=== PATIENT | male | born 1970 | race Caucasian/White ===

== ENCOUNTER 2018-02-25 21:05 | Emergency (ER) | payer OTHER, SELFPAY ==
[2018-02-25 21:10] VITALS: BP 138/90; PULSE 78; RESP 18; O2SAT 99
--- NOTE | 2018-02-25 21:16 | ED.EXTPRO ---
HPI - Extremity Problem General Chief complaint: Extremity Problem,Nontraumatic Stated complaint: right arm pain,thinks he has a blood clot Time Seen by Provider: 02/25/18 21:16 Source: patient Mode of arrival: ambulatory Limitations: no limitations History of Present Illness HPI Narrative: Patient is a 47-year-old male with a history of CLL. Received chemotherapy last and Monday. Had an IV in his left upper extremity on an IV in his right upper extremity on Monday. 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 They were at different times but has had multiple DVTs. Has also had a PE resulting from this. He states that he has had a repeat ultrasound in his right upper extremity after his diagnosis of a DVT which shows a clearing of that clot. Does have pain in the upper portion of his right arm. He is concerned he has another DVT. He is not currently taking any anticoagulants. He is only taking an aspirin. 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 Related Data Previous Rx's Medication Instructions Recorded rivaroxaban [Xarelto] 15 mg PO BID 21 Days #0 tab 01/11/17 rivaroxaban [Xarelto] 15 mg PO BID 21 Days #42 tab 02/25/18 Allergies Allergy/AdvReac Type Severity Reaction Status Date / Time Vyojiaq-Tbn-Lji Reductase Allergy Unknown DIZZY Unverified 05/24/17 11:53 Inhibitor [[id number]-JBY REDUCTASE INHIBITOR] STATINS Allergy Unknown Uncoded 05/24/17 11:53 Review of Systems Constitutional Denies fever(s) Cardiovascular Denies chest pain and Denies dyspnea Respiratory Denies dyspnea Gastrointestinal Gastrointestinal: Denies abdominal pain Musculoskeletal Comments: Right elbow right upper arm discomfort Integumentary/Breasts Denies rash Hematologic/Lymphatic Comments: Not currently on anticoagulation PFSH Medical History CLL (chronic lymphocytic leukemia) (Acute) Deep venous thrombosis of upper extremity (Acute) Pulmonary embolism (Acute) Surgical History No pertinent past surgical history (Acute) Social History marital status: lives independently: Yes Exam Initial Vital Signs Initial Vital Signs: Vital Signs Pulse Rate 78 02/25/18 21:10 Respiratory Rate 18 02/25/18 21:10 Blood Pressure 138/90 02/25/18 21:10 Pulse Oximetry 99 02/25/18 21:10 Const General: cooperative, healthy appearing, comfortable, well developed, well groomed and No acute distress Orientation: alert, awake and oriented x3 HENMT Head: normal to inspection and normocephalic Resp Effort & Inspection: normal respiratory effort Auscultation: clear to auscultation bilaterally Cardio Rate: regular rate Rhythm: regular rhythm Pulses: radial pulses present Skin Lesions: no lesions Rashes: no rashes Neuro General: alert, awake and oriented x3 Cognition: normal cognition Speech: speech normal Extrem General: normal to inspection, full ROM and capillary refill normal Other: Tenderness to palpation along the lateral aspect of the right elbow and also up the lateral aspect of her right upper extremity Psych Appearance: grossly normal and well kempt Course Orders Ordered: ED Orders 02/25/18 21:23 US periph venous up extrem rt Stat Discontinued Medications Rivaroxaban (Xarelto) 15 mg PO NOW ONE Stop: 02/25/18 22:19 Last Admin: 02/25/18 22:24 Dose: 15 mg Vital Signs - 8 hr 02/25/18 21:10 Pulse Rate 78 Respiratory Rate 18 Blood Pressure 138/90 Pulse Oximetry 99 MDM - Extremity (Nontraumatic) Imaging Data Venous US: Radiologist's impression: DVT right brachial MDM Narrative Medical decision making narrative: No respiratory distress or chest pain which is concerning for pulmonary embolism. He does have a right brachial DVT. He states that since his last diagnosis of a DVT in his right upper extremity he did have an ultrasound which showed a clearing of that clot. We have to assume that the clot that we see today is new. He was given a dose of Xarelto here in the ER. Was sent home with a prescription for this. He was instructed to contact his oncologist tomorrow for a follow-up. He knows the risks and benefits of this medication because he has been on in the past. He knows return precautions with regard to the pulmonary embolism. Patient expressed agreement with this plan. Discharge Plan Departure Patient Disposition: Home Clinical Impression: Deep venous thrombosis of upper extremity Instructions: DI for Deep Vein Thrombosis Activity Restrictions/Additional Instructions: You were given your 1st dose of Xarelto here in the emergency department. I do recommend that tomorrow you contact your oncologist to discuss further treatment. The prescription you were given is in case the decision is made to continue with the anticoagulation. Return to the emergency department for any new or worsening symptoms Prescriptions: New rivaroxaban [Xarelto] 15 mg tablet 15 mg PO BID 21 Days Qty: 42 RF: 0 No Action rivaroxaban [Xarelto] 15 MG tablet 15 mg PO BID 21 Days Qty: 0 RF: 0
--- NOTE | 2018-02-25 21:18 | PC.NURSE ---
Pt reports Hx of DVT related to chemotherapy. He present today with similar symptoms of prior dvt in his right arm. states from his elbow to his shoulder is a deep ache and that's my indicator i need to come in.
--- NOTE | 2018-02-25 21:23 | DI.US.S_ITS ---
PROCEDURE: US PERIPH VENOUS UP EXTREM RT INDICATIONS: RUE pain with hx of DVT TECHNIQUE: Real-time imaging, as well as color and pulse Doppler interrogation, was performed of the right upper extremity deep veins from the inferior neck to the antecubital fossa. COMPARISON: None. FINDINGS: The internal jugular vein, visualized portions of the subclavian vein, axillary, and veins are free of intraluminal thrombus. Occlusive thrombus present within the mid right brachial vein. Additional scanning of the cephalic and basilic veins of the superficial system demonstrate normal compressibility, without thrombus. IMPRESSION: Occlusive thrombus within the mid right brachial vein. Note: These findings are concordant with the preliminary interpretation. Dictated by: Boris APONTE Interpreted: Violet Oliva MD on 02/26/2018 at 7:46 Approved by: Violet Oliva M.D. on 02/26/2018 at 8:44
[2018-02-25] MEDS: RIVAROXABAN 10 MG TABLET 15 MG PO (22:24)
[2018-02-25 22:50] VITALS: BP 104/71; PULSE 82; RESP 16; O2SAT 96
== END 2018-02-25 22:52 | disposition home or self-care (01) ==
PROVIDERS: Emergency Provider Emergency Medicine
DX: I82.621 Acute embolism and thrombosis of deep veins of right upper extremity (principal)
CPT/HCPCS: 93971; 99282; 99283

== ENCOUNTER 2018-08-17 18:12 | Emergency (ER) | payer OTHER, SELFPAY ==
[2018-08-17 18:15] VITALS: BP 129/82; PULSE 84; RESP 16; TEMP 37.3; O2SAT 98; BMI 36.0
--- NOTE | 2018-08-17 18:24 | DI.US.S_ITS ---
PROCEDURE: US PERIPH VENOUS UP EXTREM RT INDICATIONS: RIGHT ARM PAIN; HX RUE DVT TECHNIQUE: Real-time imaging, as well as color and pulse Doppler interrogation, was performed of the right upper extremity deep veins from the inferior neck to the antecubital fossa. COMPARISON: None. FINDINGS: The internal jugular vein, visualized portions of the subclavian vein, axillary, and brachial veins are free of intraluminal thrombus. Where physically possible, the veins are normally compressible. Color and pulse Doppler demonstrate normal intraluminal flow, with expected phasicity and pulsatility. Additional scanning of the cephalic and basilic veins of the superficial system demonstrate normal compressibility, without thrombus. IMPRESSION: No deep vein thrombosis of the right upper extremity. Dictated by: Sarita Laird M.D. on 08/17/2018 at 19:18 Approved by: Sarita Laird M.D. on 08/17/2018 at 19:18
--- NOTE | 2018-08-17 19:32 | ED.EXTPRO ---
HPI - Extremity Problem <Alida Cardenas PA-C - Last Filed: 08/17/18 21:12> General Chief complaint: Extremity Injury, Upper Stated complaint: RIGHT ARM PAIN SWELLING Time Seen by Provider: 08/17/18 18:49 Source: patient Mode of arrival: ambulatory Limitations: no limitations History of Present Illness HPI Narrative: This 48-year-old male comes in due to right upper arm aching, dull, constant pain today. He states that this started on Monday without known trauma, and more persistent today. Due to concern for DVT, which he has had in the past, he came to ED for evaluation. He states the pain is limited to the upper arm, no exacerbating or alleviating features. He has not had swelling like he had with previous DVTs. He denies any chest pain or dyspnea. No new fever, rash or other new symptoms on systems review today, feeling otherwise well. He states that previous clots have happened with or shortly after CLL treatment, so he and his oncologist elected not to have him on chronic anticoagulation. No new treatments or medications currently. Related Data Allergies Allergy/AdvReac Type Severity Reaction Status Date / Time Gehcgau-Mni-Jhb Reductase Allergy Unknown DIZZY Unverified 08/17/18 18:19 Inhibitor [NVUKOMK-TEL-BNO REDUCTASE INHIBITOR] STATINS Allergy Unknown Uncoded 08/17/18 18:19 Review of Systems <Alida Cardenas PA-C - Last Filed: 08/17/18 21:12> Review of Systems ROS Unobtainable: All systems reviewed & are unremarkable except as noted in HPI and below PFSH <Alida Cardenas PA-C - Last Filed: 08/17/18 21:12> Medical History (Updated 08/17/18 @ 19:55 by Alida Cardenas PA-C) Pulmonary embolism (Resolved) Deep venous thrombosis of upper extremity (Resolved) CLL (chronic lymphocytic leukemia) (Chronic) Surgical History (Updated 08/17/18 @ 19:55 by Alida Cardenas PA-C) No pertinent past surgical history (Chronic) Social History (Updated 02/25/18 @ 22:34 by Emile Dale DO) marital status: lives independently: Yes Smoking Status: Never smoker Social History (Updated 02/25/18 @ 22:34 by Emile Dale DO) marital status: lives independently: Yes Smoking Status: Never smoker Exam <MURPHY Waite Last Filed: 08/17/18 21:12> Narrative Exam Narrative: GENERAL APPEARANCE: Patient sitting comfortably, in no distress. NECK/THYROID: Neck supple, no JVD. LUNGS: Clear to auscultation bilaterally. HEART: Regular rate and rhythm without murmur, normal S1, S2, no S3 or S4. EXTREMITIES: No cyanosis or edema. Right hand and fingers warm and pink, radial and ulnar pulses intact NEUROLOGIC: Alert and oriented, normal speech, and coordination. Right upper extremity sensation grossly intact MUSCULOSKELETAL: No tenderness over the right shoulder. Mild tenderness over the right biceps most midline to distal insertions. Tender with resisted bicep flexion. No tenderness with triceps motion. Negotiator strength 5/5 Initial Vital Signs Initial Vital Signs: Vital Signs Temperature 99.2 F 08/17/18 18:15 Pulse Rate 84 08/17/18 18:15 Respiratory Rate 16 08/17/18 18:15 Blood Pressure 129/82 08/17/18 18:15 Pulse Oximetry 98 08/17/18 18:15 <DO Lucian Meek Last Filed: 08/18/18 01:47> Initial Vital Signs Initial Vital Signs: Vital Signs Temperature 99.2 F 08/17/18 18:15 Pulse Rate 84 08/17/18 18:15 Respiratory Rate 16 08/17/18 18:15 Blood Pressure 129/82 08/17/18 18:15 Pulse Oximetry 98 08/17/18 18:15 Course <MURPHY Waite Last Filed: 08/17/18 21:12> Orders Ordered: ED Orders 08/17/18 18:24 periph venous up extrem rt Stat Vital Signs - 8 hr 08/17/18 18:15 08/17/18 19:57 Temperature 99.2 F Pulse Rate 84 80 Respiratory Rate 16 15 Blood Pressure 129/82 105/70 Pulse Oximetry 98 97 <DO Lucian Meek Last Filed: 08/18/18 01:47> Orders Ordered: ED Orders 08/17/18 18:24 US periph venous up extrem rt Stat Vital Signs - 8 hr 08/17/18 18:15 08/17/18 19:57 Temperature 99.2 F Pulse Rate 84 80 Respiratory Rate 16 15 Blood Pressure 129/82 105/70 Pulse Oximetry 98 97 MDM - Extremity (Nontraumatic) <Alida Cardenas PA-C - Last Filed: 08/17/18 21:12> Imaging Data Venous US: Radiologist's impression: [address] [address] Ultrasound Report Signed Patient: Fredi Flores MMR#: [id number] : 1970Acct:[id number] Age/Sex: 48 / MDate of Service: 08/17/18 Loc: ED Accession Number: [id number] Procedure: US periph venous up extrem rt Ordering Provider: Alida Cardenas P.A-C PROCEDURE: US PERIPH VENOUS UP EXTREM RT INDICATIONS: RIGHT ARM PAIN; HX RUE DVT TECHNIQUE: Real-time imaging, as well as color and pulse Doppler interrogation, was performed of the right upper extremity deep veins from the inferior neck to the antecubital fossa. COMPARISON: None. FINDINGS: The internal jugular vein, visualized portions of the subclavian vein, axillary, and brachial veins are free of intraluminal thrombus. Where physically possible, the veins are normally compressible. Color and pulse Doppler demonstrate normal intraluminal flow, with expected phasicity and pulsatility. Additional scanning of the cephalic and basilic veins of the superficial system demonstrate normal compressibility, without thrombus. IMPRESSION: No deep vein thrombosis of the right upper extremity. Dictated by: Sarita Laird M.D. on 08/17/2018 at 19:18 Approved by: Sarita Laird M.D. on 08/17/2018 at 19:18 Discharge Plan Departure Patient Disposition: Home Clinical Impression: Biceps muscle strain Qualifiers: Encounter type: initial encounter Laterality: right Qualified Code(s): S46.211A - Strain of muscle, fascia and tendon of other parts of biceps, right arm, initial encounter Discharge Date/Time: 08/17/18 19:58 Interventions: ED Discharge Assessment Last Done: 08/17/18 19:57 Instructions: DI for Arm Pain Activity Restrictions/Additional Instructions: There is no sign of a blood clot on your ultrasound today, and based on your exam, I think you have strained your biceps muscle and tendon. Your strength is good and there is no sign of a rupture. Please take vokp-nge-hnbiryl pain medicine such as ibuprofen to help with pain and swelling as usually would at home. Please return as we talked about if you have any acutely worsening symptoms or new symptoms such as swelling in the arm, shortness of breath or chest pain. Please follow-up with your PCP if this is not improving with rest (do not lift your 21 pound antonia!) and anti-inflammatories in the next week. Prescriptions: Discontinued Xarelto 15 MG tablet 15 mg PO BID 21 Days Qty: 0 RF: 0 Referrals: Constance Boswell PA-C [Non-Staff] - <Gonzalo Jay DO - Last Filed: 08/18/18 01:47> Cosign ED Attending Sheltonature Attestation: I was immediately available in the department for consultation. Documentation has been reviewed. I agree with assessment and plan.
--- NOTE | 2018-08-17 19:35 | ED_ITS ---
HPI - Extremity Problem <Alida Cardenas PA-C - Last Filed: 08/17/18 21:12> General Chief complaint: Extremity Injury, Upper Stated complaint: RIGHT ARM PAIN SWELLING Time Seen by Provider: 08/17/18 18:49 Source: patient Mode of arrival: ambulatory Limitations: no limitations History of Present Illness HPI Narrative: This 48-year-old male comes in due to right upper arm aching, dull, constant pain today. He states that this started on Monday without known trauma, and more persistent today. Due to concern for DVT, which he has had in the past, he came to ED for evaluation. He states the pain is limited to the upper arm, no exacerbating or alleviating features. He has not had swelling like he had with previous DVTs. He denies any chest pain or dyspnea. No new fever, rash or other new symptoms on systems review today, feeling otherwise well. He states that previous clots have happened with or shortly after CLL treatment, so he and his oncologist elected not to have him on chronic anticoagulation. No new treatments or medications currently. Related Data Allergies Allergy/AdvReac Type Severity Reaction Status Date / Time Djpqszu-Wdp-Pqn Reductase Allergy Unknown DIZZY Unverified 08/17/18 18:19 Inhibitor [ADGUZQJ-CMK-SIR REDUCTASE INHIBITOR] STATINS Allergy Unknown Uncoded 08/17/18 18:19 Review of Systems <Alida Cardenas PA-C - Last Filed: 08/17/18 21:12> Review of Systems ROS Unobtainable: All systems reviewed & are unremarkable except as noted in HPI and below PFSH <Alida Cardenas PA-C - Last Filed: 08/17/18 21:12> Medical History (Updated 08/17/18 @ 19:55 by Alida Cardenas PA-C) Pulmonary embolism (Resolved) Deep venous thrombosis of upper extremity (Resolved) CLL (chronic lymphocytic leukemia) (Chronic) Surgical History (Updated 08/17/18 @ 19:55 by Alida Cardenas PA-C) No pertinent past surgical history (Chronic) Social History (Updated 02/25/18 @ 22:34 by Emile Dale DO) marital status: lives independently: Yes Smoking Status: Never smoker Social History (Updated 02/25/18 @ 22:34 by Emile Dale DO) marital status: lives independently: Yes Smoking Status: Never smoker Exam <MURPHY Waite Last Filed: 08/17/18 21:12> Narrative Exam Narrative: GENERAL APPEARANCE: Patient sitting comfortably, in no distress. NECK/THYROID: Neck supple, no JVD. LUNGS: Clear to auscultation bilaterally. HEART: Regular rate and rhythm without murmur, normal S1, S2, no S3 or S4. EXTREMITIES: No cyanosis or edema. Right hand and fingers warm and pink, radial and ulnar pulses intact NEUROLOGIC: Alert and oriented, normal speech, and coordination. Right upper extremity sensation grossly intact MUSCULOSKELETAL: No tenderness over the right shoulder. Mild tenderness over the right biceps most midline to distal insertions. Tender with resisted bicep flexion. No tenderness with triceps motion. Banquet Prep Cook strength 5/5 Initial Vital Signs Initial Vital Signs: Vital Signs Temperature 99.2 F 08/17/18 18:15 Pulse Rate 84 08/17/18 18:15 Respiratory Rate 16 08/17/18 18:15 Blood Pressure 129/82 08/17/18 18:15 Pulse Oximetry 98 08/17/18 18:15 <DO Lucian Meek Last Filed: 08/18/18 01:47> Initial Vital Signs Initial Vital Signs: Vital Signs Temperature 99.2 F 08/17/18 18:15 Pulse Rate 84 08/17/18 18:15 Respiratory Rate 16 08/17/18 18:15 Blood Pressure 129/82 08/17/18 18:15 Pulse Oximetry 98 08/17/18 18:15 Course <MURPHY Waite Last Filed: 08/17/18 21:12> Orders Ordered: ED Orders 08/17/18 18:24 periph venous up extrem rt Stat Vital Signs - 8 hr 08/17/18 18:15 08/17/18 19:57 Temperature 99.2 F Pulse Rate 84 80 Respiratory Rate 16 15 Blood Pressure 129/82 105/70 Pulse Oximetry 98 97 <DO Lucian Meek Last Filed: 08/18/18 01:47> Orders Ordered: ED Orders 08/17/18 18:24 US periph venous up extrem rt Stat Vital Signs - 8 hr 08/17/18 18:15 08/17/18 19:57 Temperature 99.2 F Pulse Rate 84 80 Respiratory Rate 16 15 Blood Pressure 129/82 105/70 Pulse Oximetry 98 97 MDM - Extremity (Nontraumatic) <Alida Cardenas PA-C - Last Filed: 08/17/18 21:12> Imaging Data Venous US: Radiologist's impression: [address] [address] Ultrasound Report Signed Patient: Fredi Flores MMR#: [id number] : 1970Acct:[id number] Age/Sex: 48 / MDate of Service: 08/17/18 Loc: ED Accession Number: [id number] Procedure: US periph venous up extrem rt Ordering Provider: Alida Cardenas P.A-C PROCEDURE: US PERIPH VENOUS UP EXTREM RT INDICATIONS: RIGHT ARM PAIN; HX RUE DVT TECHNIQUE: Real-time imaging, as well as color and pulse Doppler interrogation, was performed of the right upper extremity deep veins from the inferior neck to the antecubital fossa. COMPARISON: None. FINDINGS: The internal jugular vein, visualized portions of the subclavian vein, axillary, and brachial veins are free of intraluminal thrombus. Where physically possible, the veins are normally compressible. Color and pulse Doppler demonstrate normal intraluminal flow, with expected phasicity and pulsatility. Additional scanning of the cephalic and basilic veins of the superficial system demonstrate normal compressibility, without thrombus. IMPRESSION: No deep vein thrombosis of the right upper extremity. Dictated by: Sarita Laird M.D. on 08/17/2018 at 19:18 Approved by: Sarita Laird M.D. on 08/17/2018 at 19:18 Discharge Plan Departure Patient Disposition: Home Clinical Impression: Biceps muscle strain Qualifiers: Encounter type: initial encounter Laterality: right Qualified Code(s): S46.211A - Strain of muscle, fascia and tendon of other parts of biceps, right arm, initial encounter Discharge Date/Time: 08/17/18 19:58 Interventions: ED Discharge Assessment Last Done: 08/17/18 19:57 Instructions: DI for Arm Pain Activity Restrictions/Additional Instructions: There is no sign of a blood clot on your ultrasound today, and based on your exam, I think you have strained your biceps muscle and tendon. Your strength is good and there is no sign of a rupture. Please take agxu-lxd-vxdqigp pain medicine such as ibuprofen to help with pain and swelling as usually would at home. Please return as we talked about if you have any acutely worsening symptoms or new symptoms such as swelling in the arm, shortness of breath or chest pain. Please follow-up with your PCP if this is not improving with rest (do not lift your 21 pound antonia!) and anti-inflammatories in the next week. Prescriptions: Discontinued Xarelto 15 MG tablet 15 mg PO BID 21 Days Qty: 0 RF: 0 Referrals: Constance Boswell PA-C [Non-Staff] - <Gonzalo Jay DO - Last Filed: 08/18/18 01:47> Cosign ED Attending Sheltonature Attestation: I was immediately available in the department for consultation. Documentation has been reviewed. I agree with assessment and plan.
[2018-08-17 19:57] VITALS: BP 105/70; PULSE 80; RESP 15; O2SAT 97
== END 2018-08-17 19:58 | disposition home or self-care (01) ==
PROVIDERS: Emergency Provider Internal Medicine
DX: S46.211A Strain of muscle, fascia and tendon of other parts of biceps, right arm, initial encounter (principal)
CPT/HCPCS: 93971; 99282; 99283

== ENCOUNTER → 2019-02-25 14:41 | Outpatient (CLI) | payer OTHER, SELFPAY ==
--- NOTE | 2019-02-25 14:42 | DI.RAD.S_ITS ---
PROCEDURE: XR ELBOW LT MIN 3V INDICATIONS: Left elbow swelling and pain, heard a pop while TECHNIQUE: 3 views of the elbow were acquired. COMPARISON: None. FINDINGS: Bones: No fractures or dislocations. No suspicious bony lesions. Olecranon enthesophyte. Soft tissues: No elbow joint effusion. No suspicious soft tissue calcifications. IMPRESSION: No acute osseous abnormalities. Dictated by: Emma Quintanilla M.D. on 02/25/2019 at 16:13 Approved by: Emma Quintanilla M.D. on 02/25/2019 at 16:15
== END ==
PROVIDERS: Family Provider Physician Assistant; PCP Physician Assistant; Visit Provider Nurse Practitioner
DX: M25.522 Pain in left elbow (principal); M25.422 Effusion, left elbow
CPT/HCPCS: 73080